=== PATIENT | female | born 1985 | race African-American/Black ===

== ENCOUNTER 2016-09-18 21:59 | Emergency (ER) | payer BC ==
--- NOTE | ~2016-09-18 | CR278 ---
[facility] A Service of [facility] & [facility] RADIOLOGY TEXT RESULTS PATIENT: ELANA QUIÑONES LOCATION: [facility] : [birth year] UNIT #: [id number] AGE: [address]: Denny Casillas DO SEX: F ORDER DR: [id number] [facility] [address] [place], [place] [address] [id number] E MR#: [id number] Acc #: [id number] NAME: ELANA QUIÑONES : 1985 SEX: F STUDY DATE/TIME: 09/18/2016 22:11 UNIT: [facility] ROOM: STUDY DESCRIPTION: CR Wrist 2 View Lt Attending Physician: Denny Casillas D.O. Ordering Physician: Denny Casillas D.O. Primary Care Physician: Primary Care Physician No MEDICAL IMAGING REPORT This report is preliminary unless electronic signature is present EXAM Left wrist series, 09/18/2016. HISTORY Trauma. Glass laceration. FINDINGS AP, lateral, and oblique radiographs of the left wrist are presented. No traumatic fracture or malalignment. Joint spaces are intact. Bandaging material overlying the wrist. There is a suggestion of cutaneous irregularity along the palmar aspect of the wrist. No subcutaneous radiodense foreign body is seen. Dictated by... Roc Lucero M.D. THIS IS AN ELECTRONICALLY VERIFIED REPORT Roc Lucero M.D. at 09/19/2016 8:00 PM HERMAN/deejay TD: 09/19/2016 07:03 JOB #: [id number] MEDICAL IMAGING REPORT Page 1 of 1 COPY
== END 2016-09-19 00:11 | disposition home or self-care (01) ==
LOC: CED 21:59
DX: S61.512A Laceration without foreign body of left wrist, initial encounter (principal); W25.XXXA Contact with sharp glass, initial encounter; Y92.009 Unspecified place in unspecified non-institutional (private) residence as the place of occurrence of the external cause
CPT/HCPCS: 12032; 12042; 73100; 90715; 96374; 96375; 99284; J2270; J2405